=== PATIENT | female | born 1985 | race Asian ===

== ENCOUNTER 2020-08-05 18:16 | Emergency (ER) | payer OTHER ==
[~2020-08-05] VITALS: Ht 165.1 cm; Wt 93.2 kg
[2020-08-05] MEDS ORDERED: IBUP-2759 PO (18:19)
[2020-08-05] MEDS ORDERED: ACETAMINOPHEN 500 MG TABLET PO ONE (19:45)
[2020-08-05] MEDS ORDERED: DOXYCYCLINE HYCLATE 100 MG TABLET PO ONE (19:45)
[2020-08-05 19:46] VITALS: BP 127/73
== END 2020-08-05 20:10 | disposition home or self-care (01) ==
LOC: EMS 18:16
DX: L03.113 Cellulitis of right upper limb (principal); F17.210 Nicotine dependence, cigarettes, uncomplicated; Z79.899 Other long term (current) drug therapy

== ENCOUNTER 2020-09-23 17:50 | Emergency (ER) | payer OTHER ==
[~2020-09-23] VITALS: Ht 165.1 cm; Wt 86.4 kg
[~2020-09-23 17:50] MED LIST: IBUP-2759 PO
[2020-09-23 18:05] VITALS: BP 140/75
== END 2020-09-23 19:09 | disposition home or self-care (01) ==
LOC: EMS 17:50
DX: L02.414 Cutaneous abscess of left upper limb (principal); L03.114 Cellulitis of left upper limb; F17.210 Nicotine dependence, cigarettes, uncomplicated
CPT/HCPCS: 99283; Z7502

== ENCOUNTER 2022-07-15 21:59 | Emergency (ER) | payer OTHER ==
[~2022-07-15] VITALS: Ht 165.1 cm; Wt 79.5 kg
[2022-07-15 22:40] LABS: APPEARANCE,URINE HAZY (CLEAR); BILIRUBIN,URINE NEGATIVE (NEGATIVE); GLUCOSE, URINE (UA) NEGATIVE (NEGATIVE); KETONES,URINE NEGATIVE (NEGATIVE); LEUKOCYTE ESTERASE ,URINE LARGE (NEGATIVE); NITRATE,URINE POSITIVE (NEGATIVE); OCCULT BLOOD,URINE LARGE (NEGATIVE); PROTEIN,URINE 30-70 mg/dL (NEGATIVE); SPECIFIC GRAVITIY, URINE 1.018 (1.003-1.030); UROBILINOGEN,URINE <=1.0 mg/dL (<=1.0)
[2022-07-15 22:57] LABS: WBC,URINE 51-100 /HPF (0-5)
[2022-07-15 22:58] LABS: BACTERIA,URINE Moderate /HPF (None Seen)
[2022-07-16 00:30] VITALS: BP 129/71
[2022-07-16] MEDS ORDERED: CEPHALEXIN MONOHYDRATE 500 MG CAPSULE PO ONE (00:30)
[2022-07-16] MEDS ORDERED: PHENAZOPYRIDINE HCL 100 MG TABLET PO ONE (00:30)
[2022-07-16] MEDS ORDERED: PHEN-674 PO (01:06)
[2022-07-16] MEDS ORDERED: CEPH-558 PO (01:06)
== END 2022-07-16 01:23 | disposition home or self-care (01) ==
LOC: EMS 22:07
DX: N39.0 Urinary tract infection, site not specified (principal); F10.20 Alcohol dependence, uncomplicated; F17.210 Nicotine dependence, cigarettes, uncomplicated; R50.9 Fever, unspecified; R51.9 Headache, unspecified; R11.0 Nausea
CPT/HCPCS: 81001; 87086; 87186; 99283

== ENCOUNTER 2022-10-01 01:18 | Emergency (ER) | payer OTHER ==
[~2022-10-01] VITALS: Ht 157.5 cm; Wt 81.8 kg
[~2022-10-01 01:18] MED LIST changes: +CEPH-558 PO; +PHEN-674 PO
[2022-10-01 01:40] LABS: COVID AG,FIA SOURCE NASAL SWAB
[2022-10-01 02:02] LABS: INFLUENZA TYPE A NEGATIVE FOR TYPE A (NEGATIVE); INFLUENZA TYPE B NEGATIVE FOR TYPE B (NEGATIVE)
[2022-10-01] MEDS ORDERED: IBUP-2070 PO (02:44)
[2022-10-01] MEDS ORDERED: ACET-66 PO (02:44)
[2022-10-01] MEDS ORDERED: IBUPROFEN 600 MG TABLET PO ONE (02:45)
[2022-10-01 04:31] VITALS: BP 133/69
== END 2022-10-01 04:43 | disposition home or self-care (01) ==
LOC: EMS 01:19
DX: J06.9 Acute upper respiratory infection, unspecified (principal); N39.0 Urinary tract infection, site not specified; F17.210 Nicotine dependence, cigarettes, uncomplicated; Z98.890 Other specified postprocedural states; Z20.822 Contact with and (suspected) exposure to COVID-19
CPT/HCPCS: 87804; 99283

== ENCOUNTER 2023-03-30 05:35 | Emergency (ER) | payer OTHER ==
[~2023-03-30] VITALS: Ht 157.5 cm; Wt 80.9 kg
[~2023-03-30 05:35] MED LIST changes: +ACET-66 PO; +IBUP-1492 PO; -IBUP-2759 PO; +IBUP-45 PO
[2023-03-30 05:36] VITALS: BP 138/80
[2023-03-30] MEDS ORDERED: PROPARACAINE HCL 0.5% 15 ML OPHTHALMIC SOLUTION OS ONE (06:30)
[2023-03-30] MEDS ORDERED: NEOMYCIN/POLYMYXIN B/HYDROCORT 10 ML OTIC SUSPENSION AS ONE (06:45)
== END 2023-03-30 06:49 | disposition home or self-care (01) ==
LOC: EMS 05:36
DX: T16.2XXA Foreign body in left ear, initial encounter (principal); H60.92 Unspecified otitis externa, left ear; F17.210 Nicotine dependence, cigarettes, uncomplicated; Z98.890 Other specified postprocedural states; W45.8XXA Other foreign body or object entering through skin, initial encounter; Y93.89 Activity, other specified; Y92.89 Other specified places as the place of occurrence of the external cause; Y99.8 Other external cause status
CPT/HCPCS: 99284; J9035; Z7502; Z7610